=== PATIENT | female | born 1970 | race Caucasian/White ===

== ENCOUNTER 2023-03-10 09:00 | Day surgery (SDC) | payer BC ==
[~2023-03-10] VITALS: Ht 160 cm; Wt 108.9 kg
[~2023-03-10 09:00] MED LIST: ceFAZolin SODIUM 2 GM in D5W 100 ML IV ONE
[2023-03-10] MEDS ORDERED: KETOROLAC TROMETHAMINE 30 MG VIAL ONE (10:32)
[2023-03-10] MEDS ORDERED: METOCLOPRAMIDE HCL 10 MG/2 ML VIAL ONE (10:32)
[2023-03-10] MEDS ORDERED: SEVOFLURANE 15 MIN GAS INH ONE (10:32)
[2023-03-10] MEDS ORDERED: MIDAZOLAM HCL 2 MG/2 ML VIAL (VERSED) ONE (10:32)
[2023-03-10] MEDS ORDERED: NS IRRIG SOLN 1000 ML IR ONE (10:32)
[2023-03-10] MEDS ORDERED: NS IRRIG SOLN 5000 ML IR ONE (10:32)
[2023-03-10] MEDS ORDERED: PROPOFOL 200MG/ 20ML VIAL (DIPRIVAN) IV ONE (10:32)
[2023-03-10] MEDS ORDERED: fentaNYL CITRATE/PF 100 MCG/2 ML AMP ONE (10:32)
[2023-03-10] MEDS ORDERED: DEXAMETHASONE SOD PHOSPHATE 4 MG/ML VIAL ONE (10:32)
[2023-03-10] MEDS ORDERED: LR 1,000 ML IV.SOLN IV ONE (10:32)
[2023-03-10] MEDS ORDERED: LIDOCAINE 2%, 20 ML MDV ONE (10:32)
[2023-03-10] MEDS ORDERED: hydrALAZINE HCL 20 MG/ML VIAL IVP PRN (11:15)
[2023-03-10] MEDS ORDERED: ONDANSETRON HCL 4 MG/2 ML VIAL IVP PRN ×2 (11:15→11:45)
[2023-03-10] MEDS ORDERED: HYDROmorphone 1 MG/ML INJ. CARTRIDGE IVP PRN ×2 (11:15→12:00)
[2023-03-10] MEDS ORDERED: LR 1,000 ML IV SCH (11:15)
[2023-03-10] MEDS ORDERED: MIDAZOLAM HCL 2 MG/2 ML VIAL (VERSED) IVP PRN (11:15)
[2023-03-10] MEDS ORDERED: MEPERIDINE HCL/PF 25 MG/ML DISP.SYRIN IVP PRN (11:15)
[2023-03-10] MEDS ORDERED: LABETALOL 100 MG/ 20ML VIAL IVP PRN (11:15)
[2023-03-10] MEDS ORDERED: HYDROcodone/ACETAMIN 5-325 MG TAB (NORCO/ VICODIN) PO PRN (11:45)
[2023-03-10] MEDS ORDERED: OXYCODONE/ACETAMINOPHEN 5-325 TABLET PO PRN ×2 (11:45)
[2023-03-10 13:28] VITALS: O2SAT 99
[2023-03-10 15:19] VITALS: BP_SYST 140; PULSE 75; RESP 18
== END 2023-03-10 14:12 | disposition home or self-care (01) ==
LOC: SDS 09:00 → SMU 09:00 → SDS 14:12
PROVIDERS: ATTEND Specialist
DX: N93.8 Other specified abnormal uterine and vaginal bleeding (principal); N84.0 Polyp of corpus uteri; R87.615 Unsatisfactory cytologic smear of cervix; I10 Essential (primary) hypertension; E03.9 Hypothyroidism, unspecified; E66.01 Morbid (severe) obesity due to excess calories; Z68.41 Body mass index [BMI] 40.0-44.9, adult; Z79.899 Other long term (current) drug therapy
CPT/HCPCS: 87081; 58558; 88305; J1100; J1885; J2765; J3465; J2704; J3010; J7060; J7120; C1819; J2001